=== PATIENT | female | born 1950 | race Caucasian/White ===

== ENCOUNTER 2017-09-03 12:19 | Emergency (ER) | payer MEDICARE, OTHER ==
[2017-09-03] MEDS ORDERED: ONDANSETRON 4 MG TAB.RAPDIS PO ONE (13:05)
[2017-09-03] MEDS ORDERED: DICYCLOMINE HCL 10 MG CAPSULE PO ONE (13:05)
--- NOTE | 2017-09-03 13:08 | ER Document Report ---
ED Medical Screen (RME) - General Chief Complaint: Upper Abdominal Pain Stated Complaint: ABDOMINAL PAIN Time Seen by Provider: 09/03/17 12:53 Notes: RAPID MEDICAL EVALUATION DISCLOSURE I have seen this patient as part of a Rapid Medical Evaluation and, if applicable, placed any initially appropriate orders. The patient will be seen and fully evaluated, including a full history and physical exam, by a provider ( in Main ED or Fast Track) when a room becomes available. 67-year-old female here with complaints of epigastric and right upper quadrant abdominal pain ongoing for the past 3 weeks. She has also had some nausea vomiting and diarrhea. Pain is not worse with eating. She cannot tell me what makes it worse but states "it comes in waves". She does not know why she was sent here instead of receiving an outpatient order for an outpatient gallbladder ultrasound. EXAM Minimal epigastric tenderness Mild RUQ tenderness No Nicholas sign TRAVEL OUTSIDE OF THE [place] IN LAST 30 DAYS: No - Related Data Allergies/Adverse Reactions: No Known Allergies Allergy (Unverified 09/03/17 12:56) Past Medical History - Social History Chew tobacco use (# tins/day): No Frequency of alcohol use: None Drug Abuse: None - Past Medical History Cardiac Medical History: Reports: Hx Hypercholesterolemia, Hx Hypertension Pulmonary Medical History: Reports: Hx Asthma Endocrine Medical History: Reports: Hx Diabetes Mellitus Type 2 Renal/ Medical History: Denies: Hx Peritoneal Dialysis Past Surgical History: Reports: Hx Breast Surgery - right, Hx Tubal Ligation Physical Exam - Vital signs Vitals: Temp Pulse Resp BP Pulse Ox 98.4 F 94 18 105/52 L 97 09/03/17 12:37 09/03/17 12:37 09/03/17 12:37 09/03/17 12:37 09/03/17 12:37 Course - Vital Signs Vital signs: Temp Pulse Resp BP Pulse Ox 98.4 F 94 18 105/52 L 97 09/03/17 12:37 09/03/17 12:37 09/03/17 12:48 09/03/17 12:37 09/03/17 12:37
[2017-09-03 13:41] LABS: ABSOLUTE EOSINOPHILS # (AUTO) 0.3 10^3/uL (0.0-0.6); ABSOLUTE LYMPHOCYTES (AUTO) 3.4 10^3/uL (0.5-4.7); ABSOLUTE MONOCYTES (AUTO) 0.7 10^3/uL (0.1-1.4); ABSOLUTE NEUT (AUTO) 7.2 10^3/uL (1.7-8.2); BASOPHILS % (AUTO) 0.3 % (0-2); EOSINOPHILS % (AUTO) 2.8 % (0-6); HEMATOCRIT 38.1 % (36.0-47.0); HEMOGLOBIN 12.6 g/dL (12.0-15.5); LYMPHOCYTES % (AUTO) 29.1 % (13-45); MEAN CORPUSCULAR HEMOGLOBIN 29.6 pg (27.0-33.4); MEAN CORPUSCULAR HGB CONC 32.9 g/dL (32.0-36.0); MEAN CORPUSCULAR VOLUME 90 fl (80-97); MONOCYTES % (AUTO) 5.9 % (3-13); PLATELET COUNT 304 10^3/uL (150-450); RED BLOOD COUNT 4.24 10^6/uL (3.72-5.28); RED CELL DISTRIBUTION WIDTH 13.7 % (11.5-14.0); SEGMENTED NEUTROPHILS % (AUTO) 61.9 % (42-78); TOTAL CELLS COUNTED % (AUTO) 100 %; WHITE BLOOD COUNT 11.7 10^3/uL (4.0-10.5)
[2017-09-03 14:01] LABS: ALANINE AMINOTRANSFERASE 36 U/L (9-52); ALBUMIN 4.4 g/dL (3.5-5.0); ALKALINE PHOSPHATASE 90 U/L (38-126); ANION GAP 13 (5-19); ASPARTATE AMINO TRANSFERASE 26 U/L (14-36); BILIRUBIN,DIRECT 0.3 mg/dL (0.0-0.4); BILIRUBIN,TOTAL 0.3 mg/dL (0.2-1.3); BLOOD UREA NITROGEN 21 mg/dL (7-20); CALCIUM 10.1 mg/dL (8.4-10.2); CARBON DIOXIDE 26 mmol/L (22-30); CHLORIDE 104 mmol/L (98-107); GLUCOSE 138 mg/dL (75-110); LIPASE 184.8 U/L (23-300); POTASSIUM 5.1 mmol/L (3.6-5.0); SODIUM 142.7 mmol/L (137-145); TOTAL PROTEIN 7.3 g/dL (6.3-8.2)
--- NOTE | 2017-09-03 14:53 | RADIOLOGY REPORT (SQ) ---
EXAM DESCRIPTION: U/S ABDOMEN LIMITED W/O DOP COMPLETED DATE/TIME: 09/03/2017 2:28 pm REASON FOR STUDY: RUQ pain n/v COMPARISON: None. TECHNIQUE: Dynamic and static grayscale images acquired of the abdomen and recorded on PACS. Additio nal selected color Doppler and spectral images recorded. LIMITATIONS: None. FINDINGS: PANCREAS: Midline pancreas unremarkable LIVER: Normal size, increased echogenicity from fatty infiltration. LIVER VASCULATURE: Normal directional flow of the main portal vein and hepatic veins. GALLBLADDER: No stones. Normal wall thickness. No pericholecystic fluid. ULTRASOUND-DETECTED BACA'S SIGN: Negative. INTRAHEPATIC DUCTS AND COMMON DUCT: CBD and intrahepatic ducts normal caliber. No filling defects. INFERIOR VENA CAVA: Normal flow. AORTA: No aneurysm. RIGHT KIDNEY: Normal size. Normal echogenicity. Mild cortical thinning. No solid or suspicious mas ses. No hydronephrosis. No calcifications. PERITONEAL AND RIGHT PLEURAL SPACE: No ascites or effusions. OTHER: No other significant findings. IMPRESSION: Fatty liver No gallstones, gallbladder wall thickening or pericholecystic fluid TECHNICAL DOCUMENTATION: JOB ID: [id number]- All Rights Reserved Reading location - IP/workstation name: [email or web address]
--- NOTE | 2017-09-03 15:21 | ER Document Report ---
ED General - General Chief Complaint: Upper Abdominal Pain Stated Complaint: ABDOMINAL PAIN Time Seen by Provider: 09/03/17 12:53 Notes: Patient is a 57-year-old female presents here after referral from [facility] with a complaint of epigastric right upper quadrant pain for the past 3 weeks. She states that it is coming in waves is not worse postprandial. Admits intermittent nausea and diarrhea. States that nothing makes it worse or better. States she is she is n.p.o. since midnight. Denies any other significant past medical issues. Denies any previous abdominal procedures TRAVEL OUTSIDE OF THE [place] IN LAST 30 DAYS: No - Related Data Allergies/Adverse Reactions: No Known Allergies Allergy (Unverified 09/03/17 12:56) Past Medical History - Social History Smoking Status: Never Smoker Chew tobacco use (# tins/day): No Frequency of alcohol use: None Drug Abuse: None Family History: Reviewed & Not Pertinent Patient has suicidal ideation: No Patient has homicidal ideation: No - Past Medical History Cardiac Medical History: Reports: Hx Hypercholesterolemia, Hx Hypertension Pulmonary Medical History: Reports: Hx Asthma Endocrine Medical History: Reports: Hx Diabetes Mellitus Type 2 Renal/ Medical History: Denies: Hx Peritoneal Dialysis Past Surgical History: Reports: Hx Breast Surgery - right, Hx Tubal Ligation Review of Systems - Review of Systems Constitutional: No symptoms reported Cardiovascular: No symptoms reported Respiratory: No symptoms reported Gastrointestinal: See HPI Musculoskeletal: No symptoms reported Skin: No symptoms reported -: Yes All other systems reviewed and negative Physical Exam - Vital signs Vitals: Temp Pulse Resp BP Pulse Ox 98.4 F 94 18 105/52 L 97 09/03/17 12:37 09/03/17 12:37 09/03/17 12:37 09/03/17 12:37 09/03/17 12:37 - Notes Notes: PHYSICAL EXAM GENERAL: Alert, interacts well. HEAD: Normocephalic, atraumatic. EYES: Pupils equal, round, and reactive to light. Extraocular movements intact. ENT: Oral mucosa moist, tongue midline. NECK: Full range of motion. Supple. Trachea midline. LUNGS: Clear to auscultation bilaterally, no wheezes, rales, or rhonchi. No respiratory distress. HEART: Regular rate and rhythm. No murmurs, gallops, or rubs. ABDOMEN: Soft, nondistended, nontender. No guarding, rebound, or rigidity.. Bowel sounds present in all 4 quadrants. EXTREMITIES: Moves all 4 extremities spontaneously. No edema, radial and dorsalis pedis pulses 2/4 bilaterally. No cyanosis. NEUROLOGICAL: Alert and oriented x4. Normal speech. PSYCH: Normal affect, normal mood. SKIN: Warm, dry, normal turgor. No rashes or lesions noted. Course - Re-evaluation Re-evalutation: 09/03/17 15:19 Patient is a 67-year-old female who is hemodynamically stable, no acute distress and afebrile. No evidence of leukocytosis or anemia. No evidence of acute abnormality, hepatic or renal dysfunction. Patient tolerating p.o. without any difficulty. Ultrasound without evidence of gallstones, cholecystitis. Patient requesting to be discharged home to follow-up with primary care and gastroenterology. Agree with plan to review strict return precautions stable for discharge - Vital Signs Vital signs: Temp Pulse Resp BP Pulse Ox 98.7 F 88 16 110/60 99 09/03/17 15:53 09/03/17 15:53 09/03/17 15:53 09/03/17 15:53 09/03/17 15:53 - Laboratory Result Diagrams: 09/03/17 13:16 09/03/17 13:16 Laboratory results interpreted by me: 09/03/17 09/03/17 13:16 13:16 WBC 11.7 H Potassium 5.1 H BUN 21 H Glucose 138 H - Diagnostic Test Radiology reviewed: Reports reviewed Discharge - Discharge Clinical Impression: Epigastric abdominal pain Condition: Good Disposition: HOME, SELF-CARE Additional Instructions: ABDOMINAL PAIN: There are many causes of abdominal pain. Pain can mean a serious problem requiring surgery (such as appendicitis). It can also be an innocent problem that goes away on its own (such as a viral infection). Often, time must pass to determine the cause of pain. The physician does not feel that hospitalization is necessary, at present. Things may change within the next 24 hours. Call the doctor or come back for re- examination if any problems occur, such as: (1) Pain that becomes more severe, steady, or becomes concentrated in one specific area. Also, pain that is more severe with movement or coughing. (2) Vomiting that persists or becomes more frequent. (3) Blood in the vomitus, urine, or bowel movements. Blood in the stool may have a tarry or black appearance. (4) Shaking chills or fever greater than 100 degrees F. (5) The abdomen becomes more distended or swollen. (6) Bowel movements cease. (7) Failure to improve as expected. NORMAL EXAM AND WORKUP: At this time, your examination and workup show no significant abnormality. No significant abnormal physical findings are noted. All laboratory, EKG, and imaging (x-ray, CT scans, ultrasound) studies that were ordered show no significant abnormality. Although your examination and all studies that were ordered showed no significant abnormal finding, there are no examinations and no studies that are 100% accurate. There is always the possibility that some abnormality could exist and not be detected with physical examination or within the limits and capabilities of laboratory and other studies. You should return or follow up as you were instructed on your visit today for further evaluation if your symptoms do not resolve. FOLLOW-UP CARE: If you have been referred to a physician for follow-up care, call the physician s office for an appointment as you were instructed or within the next two days. If you experience worsening or a significant change in your symptoms, notify the physician immediately or return to the Emergency Department at any time for re-evaluation. Prescriptions: Metoclopramide HCl [Reglan 10 mg Tablet] 1 - 2 tab PO ASDIR PRN #25 tablet PRN Reason: Omeprazole Magnesium [Prilosec Otc] 20 mg PO DAILY #30 tablet. Sucralfate [Carafate 1 gm Tablet] 1 gm PO ACHS #120 tablet Referrals: BRISEIDA VARGAS MD [ACTIVE STAFF] - Follow up in 1 week
[2017-09-03 16:01] VITALS: BP 110/60
== END 2017-09-03 16:00 | disposition home or self-care (01) ==
LOC: ER 12:19
DX: R10.13 Epigastric pain (principal); R10.11 Right upper quadrant pain; R11.0 Nausea; R19.7 Diarrhea, unspecified; I10 Essential (primary) hypertension; E11.9 Type 2 diabetes mellitus without complications; J45.909 Unspecified asthma, uncomplicated
CPT/HCPCS: 99284; 36415; 83690; 85025; 80053; 76705; A9270; J3490; S0119

== ENCOUNTER 2017-09-11 11:41 | Day surgery (SDC) | payer MEDICARE, OTHER ==
[~2017-09-11 11:41] MED LIST: DIPHENHYDRAMINE HCL 50 MG/ML VIAL ONE; EPINEPHRINE INJ 1 MG/10 ML DISP.SYRIN ONE; FENTANYL CITRATE INJ/PF 100 MCG/2 ML AMPUL ONE; FLUMAZENIL INJ 0.5 MG/5 ML VIAL ONE; GLUCAGON,HUMAN RECOMB 1 MG INJ ONE; NALOXONE HCL INJ/PF 0.4 MG/1 ML SDV ONE
[2017-09-11] MEDS: MIDAZOLAM 2 MG/2 ML INJ ONE ×2 (13:16→13:20)
--- NOTE | 2017-09-11 13:38 | Operative Report ---
Operative Report DATE OF SURGERY: 09/11/17 Operative Report: The risks benefits and alternatives of the procedure explained to the patient in detail and informed consent is obtained.A GIF Olympus video scope was inserted into the patient's mouth and hypopharynx ,the esophagus is identified intubated and insufflated, the scope was then advanced through the esophagus stomach and duodenum ,retroflexion maneuver is done, the esophagus stomach and first and second portions of the duodenum examined by PREOPERATIVE DIAGNOSIS: Bilious vomiting POSTOPERATIVE DIAGNOSIS: Gastritis status post biopsy. Hiatal hernia. Schatzki 's ring status post breakage. Xiao's esophagus status post ablation OPERATION: EGD with ablation. EGD with biopsy SURGEON: BRISEIDA VARGAS ANESTHESIA: Moderate Sedation - 4 mg of Versed, 75 mcg of fentanyl. Conscious sedation monitoring time 30 minutes. TISSUE REMOVED OR ALTERED: As noted above. COMPLICATIONS: None. ESTIMATED BLOOD LOSS: None. INTRAOPERATIVE FINDINGS: As noted above. PROCEDURE: Patient tolerated procedure well. No immediate postprocedure complications are noted. Patient discharged in good condition. Discharge date 09/11/2017. Discharge diet: Regular. Discharge activity: Regular. 2-3 week follow-up to discuss findings. We will wait on biopsy. Patient is instructed to call the office or proceed to the emergency room should there be any further problems or questions. HIDA scan is scheduled for tomorrow.
[2017-09-11 14:28] VITALS: BP 111/55
== END 2017-09-11 14:26 | disposition home or self-care (01) ==
LOC: END 11:41
PROVIDERS: ATTEND Internal Medicine Gastroenterology
DX: K29.50 Unspecified chronic gastritis without bleeding (principal); K44.9 Diaphragmatic hernia without obstruction or gangrene; K22.2 Esophageal obstruction; K22.70 Barrett's esophagus without dysplasia
CPT/HCPCS: 43270; 43239; 82962; 88305 ×2; J2250; J3010; J0171; J1200; J1610; J2310; J3490

== ENCOUNTER → 2017-09-12 | Outpatient (CLI) | payer MEDICARE, OTHER ==
--- NOTE | 2017-09-12 15:35 | RADIOLOGY REPORT (SQ) ---
EXAM DESCRIPTION: NM HIDA SCAN WITH CCK COMPLETED DATE/TIME: 09/12/2017 3:16 pm REASON FOR STUDY: BILIOUS VOMITING WITH NAUSEA R11.14 BILIOUS VOMITING COMPARISON: None. RADIONUCLIDE AND DOSE: DOSAGE RADIONUCLIDE: 5.82 millicuries Tc99m Mebrofenin. DOSAGE CCK: 1.6 micrograms. DOSAGE MORPHINE: Not required. The route of agent administration: Intravenous TECHNIQUE: Serial imaging right upper quadrant up to 60 minutes following injection of radionuclide. CCK injected after gallbladder visualized. LIMITATIONS: None. FINDINGS: LIVER: Normal visualization without areas of photopenia. INTRAHEPATIC BILE DUCTS: Normal size and no delay in visualization. COMMON BILE DUCT: Normal without dilatation. GALLBLADDER: Normal visualization. Calculated ejection fraction of 5%. Normal range is greater jude n 35%. PHYSICAL RESPONSE: Patients presenting complaint was reproduced. OTHER: No other significant finding. IMPRESSION: Abnormal gallbladder function with an ejection fraction of 5% where 35% or greater is co nsidered normal. The patient's symptoms were reproduced with the administration of CCK. The common bile duct is patent. TECHNICAL DOCUMENTATION: JOB ID: [id number] [employer]- All Rights Reserved Reading location - IP/workstation name: [email or web address]
== END ==
LOC: RAD 11:58
PROVIDERS: ATTEND Internal Medicine Gastroenterology
DX: R11.14 Bilious vomiting (principal)
CPT/HCPCS: 78227; J2805; A9537; Q9969

== ENCOUNTER 2017-10-15 05:33 | Day surgery (SDC) | payer MEDICARE, OTHER ==
[~2017-10-15 05:33] MED LIST changes: +ACETAMINOPHEN 325 MG TABLET PO PRN; +CEFAZOLIN 1 GM/D5W RTU 1 GM/50 ML RTUPB IV PRN; -DIPHENHYDRAMINE HCL 50 MG/ML VIAL ONE; -EPINEPHRINE INJ 1 MG/10 ML DISP.SYRIN ONE; -FENTANYL CITRATE INJ/PF 100 MCG/2 ML AMPUL ONE; -FLUMAZENIL INJ 0.5 MG/5 ML VIAL ONE; -GLUCAGON,HUMAN RECOMB 1 MG INJ ONE; -NALOXONE HCL INJ/PF 0.4 MG/1 ML SDV ONE
[2017-10-15 06:22] LABS: ALANINE AMINOTRANSFERASE 30 U/L (9-52); ALBUMIN 4.4 g/dL (3.5-5.0); ALKALINE PHOSPHATASE 73 U/L (38-126); AMYLASE 88 U/L (30-110); ANION GAP 14 (5-19); ASPARTATE AMINO TRANSFERASE 31 U/L (14-36); BILIRUBIN,DIRECT 0.3 mg/dL (0.0-0.4); BILIRUBIN,TOTAL 0.4 mg/dL (0.2-1.3); BLOOD UREA NITROGEN 15 mg/dL (7-20); CALCIUM 10.1 mg/dL (8.4-10.2); CARBON DIOXIDE 25 mmol/L (22-30); CHLORIDE 106 mmol/L (98-107); GLUCOSE 133 mg/dL (75-110); POTASSIUM 4.5 mmol/L (3.6-5.0); SODIUM 145.3 mmol/L (137-145); TOTAL PROTEIN 7.5 g/dL (6.3-8.2)
[2017-10-15 06:28] LABS: HEMATOCRIT 36.3 % (36.0-47.0); HEMOGLOBIN 12.3 g/dL (12.0-15.5); MEAN CORPUSCULAR HEMOGLOBIN 30.6 pg (27.0-33.4); MEAN CORPUSCULAR HGB CONC 33.9 g/dL (32.0-36.0); MEAN CORPUSCULAR VOLUME 90 fl (80-97); PLATELET COUNT 255 10^3/uL (150-450); RED BLOOD COUNT 4.02 10^6/uL (3.72-5.28); RED CELL DISTRIBUTION WIDTH 13.8 % (11.5-14.0); WHITE BLOOD COUNT 7.8 10^3/uL (4.0-10.5)
[2017-10-15] MEDS ORDERED: BUPIVACAINE HCL 0.25 % INJ/PF (2.5 MG/1 ML) 30 ML VIAL ONE (06:47)
[2017-10-15] MEDS ORDERED: MIDAZOLAM 2 MG/2 ML INJ ONE (07:13)
[2017-10-15] MEDS ORDERED: FENTANYL CITRATE INJ/PF 100 MCG/2 ML AMPUL ONE (07:13)
[2017-10-15] MEDS ORDERED: PROPOFOL INJ 200 MG/20 ML VIAL IV ONE (07:13)
[2017-10-15] MEDS ORDERED: FENTANYL CITRATE INJ/PF 250 MCG/5 ML AMPULE ONE (07:13)
[2017-10-15] MEDS ORDERED: MORPHINE SULFATE 10 MG/ML INJ ONE (07:14)
[2017-10-15] MEDS ORDERED: PROMETHAZINE HCL INJ 25 MG/1 ML VIAL IV PRN (07:59)
[2017-10-15] MEDS ORDERED: MEPERIDINE HCL/PF INJ 25 MG/1 ML DISP.SYRIN IV PRN (07:59)
[2017-10-15] MEDS ORDERED: MORPHINE SULFATE 10 MG/ML INJ IV PRN (07:59)
[2017-10-15] MEDS ORDERED: DIPHENHYDRAMINE HCL 50 MG/ML VIAL IV PRN (07:59)
[2017-10-15] MEDS ORDERED: FENTANYL CITRATE INJ/PF 100 MCG/2 ML AMPUL IV PRN ×3 (07:59)
--- NOTE | 2017-10-15 08:35 | Operative Report ---
Operative Report DATE OF SURGERY: 10/15/17 PREOPERATIVE DIAGNOSIS: 1. Biliary dyskinesia. 2. GERD POSTOPERATIVE DIAGNOSIS: Same with umbilical hernia OPERATION: Laparoscopic cholecystectomy SURGEON: TRACY POST ANESTHESIA: GA TISSUE REMOVED OR ALTERED: 1 gallbladder COMPLICATIONS: none ESTIMATED BLOOD LOSS: 10 cc INTRAOPERATIVE FINDINGS: See below PROCEDURE: After obtaining informed consent, the patient was taken to the operating room. General Anesthesia was induced; the arms were extended, and the abdomen was exposed, and prepped and draped in a sterile fashion. Instrumentation was set up for laparoscopic cholecystectomy. Surgical plan and surgical timeout were conducted. Physical examination there was a umbilical hernia which was reduced manually. For this reason we approached the abdominal cavity by anesthetized the skin in the right upper quadrant with quarter percent Marcaine, making a daniel in the skin, and inserting the varies needle and the Veress needle was removed and a 5 mm port was inserted and a 5 mm flexible scope was inserted. Under direct visualization 3 additional ports were placed one in the subxiphoid one in the far right upper quadrant and one above the umbilicus. Of note the umbilical hernias approximately 2 cm diameter, without incarcerated tissue. The subxiphoid port which was on a diagonal, there was bleeding from the port site. Despite manual compression extracorporeally, the bleeding continued so we pulled out the 5 mm port extended the skin incision and placed a 10 mm applied port with a balloon. The port was inserted through the previous 5 mm port site entry position, and the balloon insufflated and tension applied onto the abdominal wall. This effectively stopped the bleeding which was minimal. The bleeding was likely coming from rectus abdominis muscle. Visualization of the peritoneal cavity confirmed safe uneventful entry. Under direct visualization 3 additional 5 mm ports were established, one in the subxiphoid position and second in the subcostal position. There were a few adhesions to the anterior abdominal wall and the gallbladder which were taken down sharply. There were also a few adhesions between the gallbladder and the duodenum. These were taken down sharply.; Visualization of the hepatobiliary anatomy revealed no anatomic variations. A grasper was placed on the fundus of the gallbladder and the gallbladder is elevated over the right surface of the liver; a second grasper was used to grasp the infundibulum of the gallbladder. The neck of the gallbladder and junction with the cystic duct was dissected out. The Cystic artery was in its usual location medial and cephalad to the cystic duct. The cystic artery was surrounded with a right angle clamp, clipped twice proximally and divided with laparoscopic scissors. We now opened the triangle of Calot by dividing the peritoneal reflection on both the medial and lateral sides of the cystic duct infundibular junction. The critical view was obtained. We now milked the cystic duct of any possible stones, clipped the cystic duct approximately 2 times once distally and divided with scissors. The gallbladder was now removed from the undersurface of the liver using hook cautery dissection. Graspers were repositioned and the gallbladder was removed uneventfully from the abdominal cavity through the subxiphoid port site incision. The specimen was examined, then passed off to pathology for permanent analysis. We returned to the peritoneal cavity check for bleeding, and evidence of bile leak, and there was none. We Confirmed satisfactory placement of clips on cystic duct and cystic artery were secured . There was no further bleeding from the subxiphoid port site. At this point we felt the operation was complete. The subcutaneous tissue was then anesthetized with quarter percent Marcaine Sponge and needle counts are correct. All ports removed under direct visualization pneumoperitoneum evacuated, and 5 mm port wounds closed with 3-0 Vicryl suture, benzoin and Steri-Strips. The patient was extubated, and taken to the recovery room in stable condition.
--- NOTE | 2017-10-15 08:37 | Discharge Summary ---
Discharge Summary (SDC) - Discharge Final Diagnosis: Dyskinesia biliary Date of Surgery: 10/15/17 Discharge Date: 10/15/17 Treatment or Instructions: Resume preop activities gradually; no lifting heavier than 25 pounds; may shower and blot incisions dry; follow-up with [facility] in 1-2 weeks; prescription on chart. Referrals: MAT ESPINOZA PA [Primary Care Provider] - Discharge Diet: As Tolerated Discharge Activity: Activity As Tolerated, No Lifting Over 10 Pounds Home Care Assistance: None Needed Report the Following to Your Physician Immediately: Shortness of Breath, Increase in Pain, Fever over 101 Degrees
[2017-10-15 11:03] VITALS: BP 134/53
--- NOTE | 2017-10-15 12:26 | EKG REPORT ---
SEVERITY:- NORMAL ECG - SINUS RHYTHM : Confirmed by: Mima Espinoza MD 15-Oct-2017 12:25:25
[2017-10-15] MEDS ORDERED: GLYCOPYRROLATE 1 MG/5 ML SYRINGE ONE (14:18)
[2017-10-15] MEDS ORDERED: PHENYLEPHRINE HCL INJ/PF 10 MG/1 ML SDV ONE (14:18)
[2017-10-15] MEDS ORDERED: VECURONIUM BROMIDE INJ 10 MG VIAL IV ONE (14:18)
[2017-10-15] MEDS ORDERED: ONDANSETRON HCL INJ/PF 4 MG/2 ML SDV ONE (14:18)
[2017-10-15] MEDS ORDERED: LIDOCAINE 2% INJ-PF (20 MG/ML) 2 ML AMPUL ONE (14:18)
[2017-10-15] MEDS ORDERED: NEOSTIGMINE METHYLSULFATE 10 MG/10 ML VIAL ONE (14:18)
[2017-10-15] MEDS ORDERED: SUCCINYLCHOLINE CHLORIDE INJ 200 MG/10 ML VIAL ONE (14:18)
== END 2017-10-15 11:00 | disposition home or self-care (01) ==
LOC: OROUT 05:33
PROVIDERS: ATTEND Surgery
DX: K81.1 Chronic cholecystitis (principal); E11.9 Type 2 diabetes mellitus without complications; E07.9 Disorder of thyroid, unspecified; I10 Essential (primary) hypertension; E78.00 Pure hypercholesterolemia, unspecified; Z79.899 Other long term (current) drug therapy; Z79.84 Long term (current) use of oral hypoglycemic drugs; Z79.51 Long term (current) use of inhaled steroids
CPT/HCPCS: 36415; 82962; 82150; 85027; 80076; 80048; 88304 ×2; 93005; 93010; 47562; J2250; J0690; J3010; J3490 ×3; J2370; J0330; J2405; J2704; 790; J2270